=== PATIENT | female | born 1980 | race Caucasian/White ===

== ENCOUNTER 2021-03-16 04:28 | Day surgery (SDC) | payer OTHER ==
[2021-03-11 17:28] VITALS: BMI 27.4
[2021-03-16] MEDS ORDERED: MIDAZOLAM HCL 2 MG/2 ML SINGLE DOSE VIAL ONE (09:57)
[2021-03-16] MEDS ORDERED: ONDANSETRON 4 MG/2 ML VIAL IVPUSH PRN ×2 (09:58→11:53)
[2021-03-16] MEDS ORDERED: oxyCODONE HCL 5 MG TABLET PO PRN ×2 (09:58→11:53)
[2021-03-16] MEDS ORDERED: LACTATED RINGERS SOLUTION 1,000 ML IV SCH (10:00)
[2021-03-16] MEDS ORDERED: NEOSTIGMINE METHYLSULFATE 0.5 MG/ML - 10 ML MDV ONE (10:51)
[2021-03-16] MEDS ORDERED: GLYCOPYRROLATE 0.2 MG/1 ML VIAL ONE (10:51)
[2021-03-16] MEDS ORDERED: IBUPROFEN 800 MG/8 ML IJ IVPB PRN (11:53)
[2021-03-16] MEDS ORDERED: IBUPROFEN 600 MG TABLET (FP) PO PRN (11:53)
[2021-03-16] MEDS ORDERED: ELECTROLYTE-148 SOLN 1,000 ML IV SCH (12:00)
[2021-03-16] MEDS ORDERED: ACETAMINOPHEN 325 MG TABLET (FP) ONE (13:11)
[2021-03-16] MEDS ORDERED: ACETAMINOPHEN 325 MG TABLET (FP) PO ONE (13:30)
[2021-03-16 15:23] VITALS: BP 106/70; PULSE 70; TEMP 98.4
== END 2021-03-16 15:00 | disposition home or self-care (01) ==
LOC: JASU-SURG 04:28
PROVIDERS: ATTEND Obstetrics & Gynecology
PROC: 0UT74ZZ Resection of Bilateral Fallopian Tubes, Percutaneous Endoscopic Approach (ICD-10-PCS; principal; 2021-03-16 09:00)
DX: Z30.2 Encounter for sterilization (principal)
CPT/HCPCS: 88302-TC; 94760